=== PATIENT | female | born 1995 | race Caucasian/White ===

== ENCOUNTER 2020-02-24 17:09 | Emergency (ER) | payer OTHER ==
[2020-02-24 17:19] VITALS: BP 122/81
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
[2020-02-24 18:11] LABS: HGB - HEMOGLOBIN 14.5 g/dL (12.0-16.0); MEAN CORPUSCULAR HEMOGLOBIN 30.1 pg (27.0-31.0); MEAN CORPUSCULAR HGB CONC 32.9 g/dL (32.0-36.0); MEAN CORPUSCULAR VOLUME 91.7 fL (81.0-99.0); MEAN PLATELET VOLUME 10.3 fL (7.9-10.8); RED BLOOD COUNT 4.81 10^6/uL (4.20-5.40); RED CELL DISTRIBUTION WIDTH 12.3 % (12.0-15.0); WHITE BLOOD COUNT 10.1 x10^3/uL (4.8-10.8)
[2020-02-24 18:23] LABS: ALBUMIN 4.7 g/dL (3.2-5.5); ALBUMIN/GLOBULIN RATIO 1.4 (1.0-2.2); BILIRUBIN,TOTAL 1.2 mg/dL (0.2-1.0); CALCIUM 9.4 mg/dL (8.5-10.3); CREATININE 0.7 mg/dL (0.4-1.0); TOTAL PROTEIN 8.1 g/dL (6.7-8.2)
[2020-02-27 12:55] LABS: HIV AG/AB 4TH GEN NON-REACTIVE (NON-REACTIVE)
[2020-02-27 14:10] LABS: HEPATITIS C ANTIBODY NON-REACTIVE (NON-REACTIVE)
== END 2020-02-24 18:00 | disposition home or self-care (01) ==
LOC: ED 17:09
DX: Z77.21 Contact with and (suspected) exposure to potentially hazardous body fluids (principal)
CPT/HCPCS: 1040M; 36415; 80053; 85027; 86317; 86803; 87389; 99281; 99283

== ENCOUNTER 2020-03-20 09:20 | Outpatient (CLI) | payer OTHER | END 2020-03-20 23:59 | disposition home or self-care (01) | LOC: COV 09:20 | PROVIDERS: ATTEND Family Medicine | DX: R50.9 Fever, unspecified (principal); R05 Cough; M79.10 Myalgia, unspecified site; R53.83 Other fatigue; J02.9 Acute pharyngitis, unspecified; R43.8 Other disturbances of smell and taste; R09.81 Nasal congestion; R11.2 Nausea with vomiting, unspecified; Z20.828 Contact with and (suspected) exposure to other viral communicable diseases ==

== ENCOUNTER 2020-10-04 19:53 | Emergency (ER) | payer OTHER ==
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
--- NOTE | 2020-10-04 21:08 | XRAY Report ---
PROCEDURE: Elbow 3 View LT INDICATIONS: elbow inj TECHNIQUE: 3 views of the elbow were acquired. COMPARISON: None FINDINGS: Bones: No fractures or dislocations. No suspicious bony lesions. Soft tissues: No elbow joint effusion. No suspicious soft tissue calcifications. IMPRESSION: No fracture. No osseous lesion. If there are persistent symptoms or continued clinical concern for pa thology, then repeat plain film radiographs (7-10 days) or advanced imaging (CT, MR, bone scan) shoul d be considered for further evaluation. Reviewed by: Keke Zuñiga MD, PhD on 10/04/2020 9:06 PM [facility] Approved by: Keke Zuñiga MD, PhD on 10/04/2020 9:06 PM [facility] Station ID: [id number]
--- NOTE | 2020-10-04 21:13 | XRAY Report ---
PROCEDURE: Wrist 4 View LT INDICATIONS: wrist inj TECHNIQUE: 4 views of the wrist were acquired. COMPARISON: None FINDINGS: Bones: No fractures or dislocations. No suspicious bony lesions. Scaphoid view: Scaphoid is intact. Soft tissues: No suspicious soft tissue calcifications. IMPRESSION: No fracture. No osseous lesion. If there are persistent symptoms or continued clinical concern for pa thology, then repeat plain film radiographs (7-10 days) or advanced imaging (CT, MR, bone scan) shoul d be considered for further evaluation. Reviewed by: Keke Zuñiga MD, PhD on 10/04/2020 9:11 PM PST Approved by: Keke Zuñiga MD, PhD on 10/04/2020 9:11 PM PST Station ID: [id number]
[2020-10-04 21:17] VITALS: BP 142/78
== END 2020-10-04 21:16 | disposition home or self-care (01) ==
LOC: ED 19:53
DX: S53.402A Unspecified sprain of left elbow, initial encounter (principal); S63.502A Unspecified sprain of left wrist, initial encounter; M54.9 Dorsalgia, unspecified; Y35.811A Legal intervention involving manhandling, law enforcement official injured, initial encounter; Y93.89 Activity, other specified; Y92.238 Other place in hospital as the place of occurrence of the external cause; Y99.0 Civilian activity done for income or pay
CPT/HCPCS: 1040M; 73080; 73110; 99282; 99283

== ENCOUNTER 2021-09-27 08:00 | Outpatient (CLI) | payer OTHER | END 2021-09-27 23:59 | LOC: LAB.N 08:00 | PROVIDERS: ATTEND Physician Assistant | DX: U07.1 COVID-19 (principal) ==